=== PATIENT | male | born 1970 | race Caucasian/White ===

== ENCOUNTER 2017-05-08 00:21 | Emergency (ER) | payer OTHER ==
[2017-05-08 01:05] LABS: BASOPHILS 0.5 % (0-2); EOSINOPHILS 1.9 % (0-7); HEMOGLOBIN 14.3 g/dL (13.5-17.5); IMMATURE GRANULOCYTES 0.4 % (0-5); LYMPHOCYTES 39.5 % (15-50); MCH 34.5 pg (26.0-34.0); MCV 101.2 fL (80.0-100.0); MEAN PLATELET VOLUME 9.9 fL (7.4-10.4); MONOCYTES 8.8 % (2-11); NEUTROPHILS 48.9 % (40-80); PLATELET COUNT 233 10x3/uL (130-400); RBC 4.15 10x6/uL (4.20-6.10); RDW 13.6 % (11.5-14.5); WBC 8.5 10x3/uL (4.8-10.8)
[2017-05-08 01:09] LABS: APPEARANCE CLEAR (CLEAR); COLOR YELLOW (YELLOW); GLUCOSE NEGATIVE (NEGATIVE); NITRITE NEGATIVE (NEGATIVE); PROTEIN NEGATIVE (NEGATIVE)
[2017-05-08 01:10] LABS: BILIRUBIN NEGATIVE (NEGATIVE); KETONE NEGATIVE (NEGATIVE); UROBILINOGEN NORMAL (NORMAL)
[2017-05-08 01:20] LABS: ALBUMIN 3.8 g/dL (3.4-5.0); ALKALINE PHOSPHATASE 120 U/L (46-116); ALT (SGPT) 83 U/L (10-68); BILIRUBIN - TOTAL 0.32 mg/dL (0.2-1.3); CALC OSMOLALITY 270 mosm/kg (275-300); CALCIUM 8.2 mg/dL (8.5-10.1); CARBON DIOXIDE 26.8 mmol/L (21.0-32.0); CHLORIDE - SERUM 101 mmol/L (98-107); CREATININE - SERUM 0.6 mg/dL (0.6-1.3); GLUCOSE 99 mg/dL (74-106); POTASSIUM - SERUM 3.3 mmol/L (3.5-5.1); PROTEIN - SERUM 7.5 g/dL (6.4-8.2); SODIUM 137 mmol/L (136-145); UDS - AMPHET NEGATIVE QUAL (NEGATIVE); UDS - BARB NEGATIVE QUAL (NEGATIVE); UDS - BENZO NEGATIVE QUAL (NEGATIVE); UDS - COCAINE NEGATIVE QUAL (NEGATIVE); UDS - OPIATE NEGATIVE QUAL (NEGATIVE); UDS - PCP NEGATIVE QUAL (NEGATIVE); UDS - THC POSITIVE QUAL (NEGATIVE); UREA NITROGEN 4 mg/dL (7-18); eGFR NON AFRICAN AMERICAN > 90 mL/min (90-120)
[2017-05-08 01:21] LABS: MAGNESIUM - SERUM 1.9 mg/dL (1.8-2.4)
== END 2017-05-08 15:10 | disposition home or self-care (01) ==
LOC: D.ER 00:21
PROVIDERS: Nurse Practitioner Family
DX: F10.129 Alcohol abuse with intoxication, unspecified (principal)

== ENCOUNTER 2017-08-08 17:28 | Observation (INO) | payer MEDICAID ==
[~2017-08-08] VITALS: Ht 181.6 cm; Wt 72.7 kg
[2017-08-08 19:27] LABS: BASOPHILS 0.2 % (0-2); EOSINOPHILS 0.6 % (0-7); HEMATOCRIT 42.3 % (42.0-54.0); HEMOGLOBIN 14.6 g/dL (13.5-17.5); IMMATURE GRANULOCYTES 0.2 % (0-5); LYMPHOCYTES 8.8 % (15-50); MCH 35.7 pg (26.0-34.0); MCHC 34.5 g/dL (31.0-37.0); MCV 103.4 fL (80.0-100.0); MEAN PLATELET VOLUME 10.1 fL (7.4-10.4); MONOCYTES 5.2 % (2-11); PLATELET COUNT 219 10x3/uL (130-400); RBC 4.09 10x6/uL (4.20-6.10); WBC 14.4 10x3/uL (4.8-10.8)
[2017-08-08 19:55] LABS: ALBUMIN 3.9 g/dL (3.4-5.0); ALKALINE PHOSPHATASE 123 U/L (46-116); ALT (SGPT) 130 U/L (10-68); CALC OSMOLALITY 280 mosm/kg (275-300); CALCIUM 8.5 mg/dL (8.5-10.1); CARBON DIOXIDE 24.8 mmol/L (21.0-32.0); CHLORIDE - SERUM 102 mmol/L (98-107); CREATININE - SERUM 0.5 mg/dL (0.6-1.3); GLUCOSE 99 mg/dL (74-106); POTASSIUM - SERUM 4.6 mmol/L (3.5-5.1); PROTEIN - SERUM 7.9 g/dL (6.4-8.2); SODIUM 142 mmol/L (136-145); UREA NITROGEN 6 mg/dL (7-18); eGFR NON AFRICAN AMERICAN > 90 mL/min (90-120)
[2017-08-08 22:21] VITALS: BP 114/74; BMI 22.0
[2017-08-09 01:35] VITALS: BP 140/62
[2017-08-09 04:00] VITALS: BP 113/67
[2017-08-09 08:47] VITALS: Ht 181.6 cm; Wt 72.7 kg
[2017-08-09 13:26] VITALS: BP 146/99
[2017-08-09 18:26] VITALS: BP 128/79
[2017-08-09 20:00] VITALS: BP 123/81
[2017-08-10 04:00] VITALS: BP 119/78
[2017-08-10 10:03] VITALS: BP 126/78
[2017-08-10 13:35] VITALS: BP 135/84
[2017-08-10 16:54] VITALS: BP 134/83
[2017-08-10 20:00] VITALS: BP 138/85
[2017-08-11 04:00] VITALS: BP 115/68
[2017-08-11 05:42] LABS: BASOPHILS 0.2 % (0-2); HEMOGLOBIN 14.2 g/dL (13.5-17.5); IMMATURE GRANULOCYTES 0.3 % (0-5); LYMPHOCYTES 18.1 % (15-50); MCH 36.1 pg (26.0-34.0); MCHC 34.6 g/dL (31.0-37.0); MCV 104.3 fL (80.0-100.0); MEAN PLATELET VOLUME 11.1 fL (7.4-10.4); MONOCYTES 7.9 % (2-11); NEUTROPHILS 71.5 % (40-80); PLATELET COUNT 183 10x3/uL (130-400); RBC 3.93 10x6/uL (4.20-6.10); RDW 11.8 % (11.5-14.5); WBC 10.1 10x3/uL (4.8-10.8)
[2017-08-11 05:55] LABS: CALC OSMOLALITY 274 mosm/kg (275-300); CALCIUM 8.9 mg/dL (8.5-10.1); CARBON DIOXIDE 31.6 mmol/L (21.0-32.0); CHLORIDE - SERUM 103 mmol/L (98-107); CREATININE - SERUM 0.6 mg/dL (0.6-1.3); GLUCOSE 89 mg/dL (74-106); POTASSIUM - SERUM 3.7 mmol/L (3.5-5.1); SODIUM 140 mmol/L (136-145); UREA NITROGEN 5 mg/dL (7-18); eGFR NON AFRICAN AMERICAN > 90 mL/min (90-120)
[2017-08-11] MEDS ORDERED: PERCOCET 7.5/321 TAB PO (08:48)
[2017-08-11] MEDS ORDERED: AUGMENTIN 875-11 TAB PO (08:50)
== END 2017-08-11 11:48 | disposition home or self-care (01) ==
LOC: D.ER 17:28 → D.MS 19:16 → OBSVTIME 19:16 → D.EDHOLD 19:16 → D.MS 19:26
PROVIDERS: Emergency Medicine; Surgery
DX: S27.0XXA Traumatic pneumothorax, initial encounter (principal); S22.41XA Multiple fractures of ribs, right side, initial encounter for closed fracture; Y09 Assault by unspecified means

== ENCOUNTER 2018-01-18 23:39 | Emergency (ER) | payer SELFPAY ==
[~2018-01-18] VITALS: Ht 181.6 cm; Wt 75.0 kg
[~2018-01-18 23:39] MED LIST: AUGMENTIN 875-11 TAB PO; PERCOCET 7.5/321 TAB PO
[2018-01-18 23:41] VITALS: Ht 181.6 cm; Wt 75.0 kg
[2018-01-19 00:19] LABS: APPEARANCE CLEAR (CLEAR); BILIRUBIN NEGATIVE (NEGATIVE); COLOR STRAW (YELLOW); GLUCOSE NEGATIVE (NEGATIVE); KETONE NEGATIVE (NEGATIVE); NITRITE NEGATIVE (NEGATIVE); PROTEIN NEGATIVE (NEGATIVE); SPECIFIC GRAVITY 1.005 (1.005-1.020); UROBILINOGEN NORMAL (NORMAL)
[2018-01-19 00:31] LABS: UDS - AMPHET NEGATIVE QUAL (NEGATIVE); UDS - BARB NEGATIVE QUAL (NEGATIVE); UDS - BENZO NEGATIVE QUAL (NEGATIVE); UDS - COCAINE NEGATIVE QUAL (NEGATIVE); UDS - OPIATE NEGATIVE QUAL (NEGATIVE); UDS - PCP NEGATIVE QUAL (NEGATIVE); UDS - THC NEGATIVE QUAL (NEGATIVE)
[2018-01-19 00:52] LABS: BASOPHILS 0.2 % (0-2); EOSINOPHILS 1.2 % (0-7); HEMATOCRIT 46.4 % (42.0-54.0); HEMOGLOBIN 16.5 g/dL (13.5-17.5); IMMATURE GRANULOCYTES 0.5 % (0-5); LYMPHOCYTES 29.7 % (15-50); MCH 35.6 pg (26.0-34.0); MCHC 35.6 g/dL (31.0-37.0); MCV 100.2 fL (80.0-100.0); MEAN PLATELET VOLUME 10.2 fL (7.4-10.4); MONOCYTES 5.3 % (2-11); NEUTROPHILS 63.1 % (40-80); RBC 4.63 10x6/uL (4.20-6.10); RDW 12.8 % (11.5-14.5); WBC 9.7 10x3/uL (4.8-10.8)
[2018-01-19 00:53] LABS: PLATELET COUNT 249 10x3/uL (130-400)
[2018-01-19 01:28] LABS: ALKALINE PHOSPHATASE 101 U/L (46-116); ALT (SGPT) 29 U/L (10-68); BILIRUBIN - TOTAL 0.07 mg/dL (0.2-1.3); CALC OSMOLALITY 285 mosm/kg (275-300); CALCIUM 8.9 mg/dL (8.5-10.1); CARBON DIOXIDE 27.4 mmol/L (21.0-32.0); CHLORIDE - SERUM 105 mmol/L (98-107); CREATININE - SERUM 0.5 mg/dL (0.6-1.3); GLUCOSE 97 mg/dL (74-106); MAGNESIUM - SERUM 1.7 mg/dL (1.8-2.4); POTASSIUM - SERUM 3.5 mmol/L (3.5-5.1); SODIUM 145 mmol/L (136-145); UREA NITROGEN 5 mg/dL (7-18); eGFR NON AFRICAN AMERICAN > 90 mL/min (90-120)
[2018-01-19 13:11] VITALS: BP 150/086
== END 2018-01-19 13:13 | disposition home or self-care (01) ==
LOC: D.ER 23:39
PROVIDERS: Emergency Medicine
DX: F10.129 Alcohol abuse with intoxication, unspecified (principal); E83.42 Hypomagnesemia; F17.200 Nicotine dependence, unspecified, uncomplicated

== ENCOUNTER 2019-04-03 19:48 | Emergency (ER) | payer SELFPAY ==
[~2019-04-03] VITALS: Ht 181.6 cm; Wt 72.7 kg
[2019-04-03 20:07] VITALS: Ht 181.6 cm; Wt 72.7 kg
[2019-04-03 20:46] LABS: APPEARANCE CLEAR (CLEAR); BILIRUBIN NEGATIVE (NEGATIVE); COLOR STRAW (YELLOW); GLUCOSE NEGATIVE (NEGATIVE); KETONE NEGATIVE (NEGATIVE); NITRITE NEGATIVE (NEGATIVE); PROTEIN NEGATIVE (NEGATIVE); UROBILINOGEN NORMAL (NORMAL)
[2019-04-03 22:31] VITALS: BP 102/73
== END 2019-04-03 22:31 | disposition home or self-care (01) ==
LOC: D.ER 19:48
PROVIDERS: Family Medicine
DX: A64 Unspecified sexually transmitted disease (principal)

== ENCOUNTER 2019-11-14 17:20 | Emergency (ER) | payer SELFPAY ==
[~2019-11-14] VITALS: Ht 181.6 cm; Wt 71.8 kg
[2019-11-14 17:22] VITALS: Ht 181.6 cm; Wt 71.8 kg
[2019-11-14 18:03] LABS: HEMATOCRIT 46.4 % (42.0-54.0); HEMOGLOBIN 15.6 g/dL (13.5-17.5); LYMPHOCYTES 37.7 % (15-50); MCH 35.5 pg (26.0-34.0); MCHC 33.6 g/dL (31.0-37.0); MCV 105.7 fL (80.0-100.0); MEAN PLATELET VOLUME 9.9 fL (7.4-10.4); NEUTROPHILS 52.2 % (40-80); RBC 4.39 10x6/uL (4.20-6.10); RDW 13.1 % (11.5-14.5); WBC 6.5 10x3/uL (4.8-10.8)
[2019-11-14 18:06] LABS: BILIRUBIN NEGATIVE (NEGATIVE); KETONE NEGATIVE (NEGATIVE); NITRITE NEGATIVE (NEGATIVE); PLATELET COUNT 191 10x3/uL (130-400); UROBILINOGEN NORMAL (NORMAL)
[2019-11-14 18:20] LABS: CALC OSMOLALITY 284 mosm/kg (275-300); CALCIUM 8.1 mg/dL (8.5-10.1); CARBON DIOXIDE 24.6 mmol/L (21.0-32.0); CHLORIDE - SERUM 110 mmol/L (98-107); CREATININE - SERUM 0.7 mg/dL (0.6-1.3); GLUCOSE 84 mg/dL (74-106); POTASSIUM - SERUM 3.7 mmol/L (3.5-5.1); SODIUM 145 mmol/L (136-145); UREA NITROGEN 3 mg/dL (7-18); eGFR NON AFRICAN AMERICAN > 90 mL/min (90-120)
[2019-11-14 18:33] LABS: UDS - AMPHET NEGATIVE QUAL (NEGATIVE); UDS - BARB NEGATIVE QUAL (NEGATIVE); UDS - BENZO NEGATIVE QUAL (NEGATIVE); UDS - COCAINE NEGATIVE QUAL (NEGATIVE); UDS - OPIATE NEGATIVE QUAL (NEGATIVE); UDS - PCP NEGATIVE QUAL (NEGATIVE); UDS - THC NEGATIVE QUAL (NEGATIVE)
[2019-11-14 18:34] LABS: ALBUMIN 3.6 g/dL (3.4-5.0); ALKALINE PHOSPHATASE 170 U/L (30-120); ALT (SGPT) 112 U/L (10-68); BILIRUBIN - TOTAL 0.12 mg/dL (0.2-1.3); PROTEIN - SERUM 7.3 g/dL (6.4-8.2)
--- NOTE | 2019-11-15 03:45 | NUR ---
DR. DICKEY NOTIFIED AND REVIEWED PT'S BEHAVIOR AND ASSESSMENT RESULTS. PT IS A LOW RISK PER DR. DICKEY. DR. DICKEY STATED TO GIVE RESOURCES TO PT AT TIME OF DISCHARGE. NO FURTHER ORDERS AT THIS TIME. RESOURCES REVIEWED WITH PT AND HE VERBALIZED UNDERSTANDING.
[2019-11-15 04:23] VITALS: BP 117/68
== END 2019-11-15 04:25 | disposition home or self-care (01) ==
LOC: D.ER 17:20
PROVIDERS: Family Medicine
DX: R45.851 Suicidal ideations (principal); F32.9 Major depressive disorder, single episode, unspecified; F10.129 Alcohol abuse with intoxication, unspecified; Y90.8 Blood alcohol level of 240 mg/100 ml or more; R79.89 Other specified abnormal findings of blood chemistry

== ENCOUNTER 2020-05-21 17:45 | Emergency (ER) | payer MEDICAID ==
[~2020-05-21] VITALS: Ht 181.6 cm; Wt 70.5 kg
[2020-05-21 17:51] VITALS: Ht 181.6 cm; Wt 70.5 kg
[2020-05-21] MEDS ORDERED: BACTRIM DS TAB1 EAC1 PO (20:48)
[2020-05-21] MEDS ORDERED: AUGMENTIN 875-11 TAB PO ×2 (20:49→20:50)
[2020-05-21] MEDS ORDERED: TORADOL10 MG PO (20:50)
[2020-05-21 21:32] VITALS: BP 129/84
== END 2020-05-21 21:32 | disposition home or self-care (01) ==
LOC: D.ER 17:45
DX: L08.9 Local infection of the skin and subcutaneous tissue, unspecified (principal)

== ENCOUNTER 2020-06-21 04:14 | Emergency (ER) | payer MEDICAID ==
[~2020-06-21] VITALS: Ht 181.6 cm; Wt 70.5 kg
[~2020-06-21 04:14] MED LIST changes: +BACTRIM DS TAB1 EAC1 PO; +TORADOL10 MG PO
[2020-06-21 04:19] VITALS: BP 110/90; Ht 181.6 cm; Wt 70.5 kg
[2020-06-21] MEDS ORDERED: CEPHALEXIN500 M1 PO (04:30)
[2020-06-21] MEDS ORDERED: CLEOCIN HCL300 MG PO (04:30)
== END 2020-06-21 04:57 | disposition home or self-care (01) ==
LOC: D.ER 04:14
DX: L03.90 Cellulitis, unspecified (principal)

== ENCOUNTER 2020-08-14 20:38 | Emergency (ER) | payer MEDICAID ==
[~2020-08-14] VITALS: Ht 181.6 cm; Wt 68.2 kg
[~2020-08-14 20:38] MED LIST changes: +CEPHALEXIN500 M1 PO; +CLEOCIN HCL300 MG PO
[2020-08-14 20:50] VITALS: Ht 181.6 cm; Wt 68.2 kg
[2020-08-14 21:23] LABS: BASOPHILS 0.6 % (0-2); EOSINOPHILS 1.8 % (0-7); HEMATOCRIT 50.2 % (42.0-54.0); HEMOGLOBIN 17.2 g/dL (13.5-17.5); LYMPHOCYTES 27.7 % (15-50); MCH 33.5 pg (26.0-34.0); MCHC 34.2 g/dL (31.0-37.0); MCV 97.8 fL (80.0-100.0); MEAN PLATELET VOLUME 8.2 fL (7.4-10.4); MONOCYTES 10.2 % (2-11); NEUTROPHILS 59.7 % (40-80); PLATELET COUNT 327 10x3/uL (130-400); RBC 5.13 10x6/uL (4.20-6.10); WBC 9.4 10x3/uL (4.8-10.8)
[2020-08-14 21:34] LABS: CALC OSMOLALITY 270 mosm/kg (275-300); CALCIUM 9.8 mg/dL (8.5-10.1); CARBON DIOXIDE 25.3 mmol/L (21.0-32.0); CHLORIDE - SERUM 93 mmol/L (98-107); CREATININE - SERUM 1.3 mg/dL (0.6-1.3); POTASSIUM - SERUM 3.6 mmol/L (3.5-5.1); SODIUM 132 mmol/L (136-145); UREA NITROGEN 24 mg/dL (7-18); eGFR NON AFRICAN AMERICAN 62 mL/min (90-120)
[2020-08-14 21:35] LABS: GLUCOSE 141 mg/dL (74-106)
[2020-08-14 21:42] LABS: ALBUMIN 4.4 g/dL (3.4-5.0); ALKALINE PHOSPHATASE 147 U/L (30-120); ALT (SGPT) 42 U/L (10-68); AMYLASE - SERUM 31 U/L (25-115); BILIRUBIN - TOTAL 0.76 mg/dL (0.2-1.3); LIPASE 141 U/L (73-393); PROTEIN - SERUM 9.2 g/dL (6.4-8.2)
[2020-08-14 21:43] LABS: TROPONIN-I < 0.017 ng/mL (0.000-0.060)
[2020-08-14 22:27] LABS: BILIRUBIN NEGATIVE (NEGATIVE); KETONE NEGATIVE (NEGATIVE); NITRITE NEGATIVE (NEGATIVE); UROBILINOGEN NORMAL mg/dL (< 2)
[2020-08-14 22:28] LABS: WHITE CELLS - URINE 0-5 HPF (0-1)
[2020-08-14 22:29] LABS: BACTERIA FEW HPF (NONE SEEN); SQUAMOUS EPITHELIAL 0-5 HPF (0-4)
[2020-08-15 02:15] LABS: CKMB 1.7 U/L (0.0-3.6); CREATINE KINASE 145 UL (21-232)
[2020-08-15 02:33] LABS: SARS-CoV-2 ANTIGEN NEGATIVE- SARS-COV-2 (NEGATIVE)
[2020-08-15 02:47] LABS: UDS - AMPHET POSITIVE QUAL (NEGATIVE); UDS - BARB NEGATIVE QUAL (NEGATIVE); UDS - BENZO NEGATIVE QUAL (NEGATIVE); UDS - COCAINE NEGATIVE QUAL (NEGATIVE); UDS - OPIATE NEGATIVE QUAL (NEGATIVE); UDS - PCP NEGATIVE QUAL (NEGATIVE); UDS - THC POSITIVE QUAL (NEGATIVE)
[2020-08-15 03:44] VITALS: BP 110/59
[2020-08-15] MEDS ORDERED: ZOFRAN ODT4 MG/UDTAB PO (06:46)
== END 2020-08-15 07:18 | disposition home or self-care (01) ==
LOC: D.ER 20:38
PROVIDERS: Emergency Medicine
DX: K52.9 Noninfective gastroenteritis and colitis, unspecified (principal); F15.10 Other stimulant abuse, uncomplicated; R11.2 Nausea with vomiting, unspecified; M79.10 Myalgia, unspecified site; F12.10 Cannabis abuse, uncomplicated; I10 Essential (primary) hypertension; Z72.0 Tobacco use